=== PATIENT | male | born 1990 | race Caucasian/White ===

== ENCOUNTER 2018-05-17 17:24 | Emergency (ER) | payer OTHER ==
[~2018-05-17] VITALS: Ht 180.3 cm; Wt 63.0 kg
[2018-05-17 17:26] VITALS: BP 132/94
[2018-05-17] MEDS ORDERED: SILVER SULF. CRM 1% , 25GM TP ONE (17:30)
[2018-05-17] MEDS ORDERED: SILVER SULF. CRM 1% , 25GM ONE (17:34)
[2018-05-17] MEDS ORDERED: KETOROLAC 30 MG/1 ML ONE (17:42)
[2018-05-17] MEDS ORDERED: KETOROLAC 30 MG/1 ML IM ONE (18:00)
== END 2018-05-17 18:03 | disposition home or self-care (01) ==
LOC: ED 17:30
DX: T22.211A Burn of second degree of right forearm, initial encounter (principal); T31.0 Burns involving less than 10% of body surface; F17.200 Nicotine dependence, unspecified, uncomplicated; X19.XXXA Contact with other heat and hot substances, initial encounter; Y93.89 Activity, other specified; Y92.89 Other specified places as the place of occurrence of the external cause; Y99.8 Other external cause status
CPT/HCPCS: 16020; 96372; 99284; J1885